=== PATIENT | female | born 1955 | race Caucasian/White ===

== ENCOUNTER → 2016-03-06 | Outpatient (CLI) | payer OTHER ==
[~2016-03-06] VITALS: Ht 160 cm; Wt 75.0 kg
[~2016-03-06] MED LIST: ASPIR-LOW81 MG PO; Ascorbic Acid,Ester- PO; Aspirin Chewable PO; Aspirin E.C. PO; CYANOCOBALAM1000 MCG PO; DESYREL 150 MG150 MG PO; FISH OIL500 MG PO; LIDOCAINE700 MG TD; METAXALONE800 MG PO; NAPROSYN500 MG PO; NAPROXEN500 MG PO; NEXIUM40 MG PO; PERCOCET 5/31 TABLET PO; PREVACID30 MG PO; PROZAC40 MG PO; PROzac PO; PriLOSEC PO; THORAZINE50 MG PO; TRAZODONE HCL150 MG PO; VALIUM5 MG PO; VITAMIN C1000 M1 PO; VITAMIN C1000 MG PO; VITAMIN D1000 UNIT PO; VITAMIN D31000 UNIT PO; Vitamin B-12 PO; Vitamin D PO; XANAX0.25 MG PO; Xanax PO; ZOFRAN4 MG PO
== END | disposition home or self-care (01) ==
LOC: AMB 09:29
DX: K86.89 Other specified diseases of pancreas (principal); K31.7 Polyp of stomach and duodenum; K44.9 Diaphragmatic hernia without obstruction or gangrene; K29.70 Gastritis, unspecified, without bleeding; R10.13 Epigastric pain; M54.6 Pain in thoracic spine; K21.9 Gastro-esophageal reflux disease without esophagitis
CPT/HCPCS: 88305; 88342 TC; J1100; J2250; J2405

== ENCOUNTER 2017-05-25 13:06 | Observation (INO) | payer OTHER ==
[~2017-05-25] VITALS: Ht 160 cm; Wt 82.6 kg
[2017-05-25 13:59] LABS: HEMATOCRIT 38.2 % (36.0-46.0); HEMOGLOBIN 12.6 G/DL (11.9-15.5); MCH 28.2 PG (29.0-34.0); MCV 85.5 FL (83-99); PLATELET COUNT 162 K/uL (156-360); RBC DIS.WIDTH-CV 13.7 % (11.8-14.6); RBC DIS.WIDTH-SD 42.8 % (39-53); RED BLOOD COUNT 4.47 M/uL (3.80-5.20); WHITE BLOOD COUNT 4.3 K/uL (4.1-10.2)
[2017-05-25 14:09] LABS: CHLORIDE 109 mEq/L (99-109); POTASSIUM 3.3 mEq/L (3.7-5.4); SODIUM 140 mEq/L (136-147)
[2017-05-25 14:10] LABS: GLUCOSE 114 mg/dL (70-99)
[2017-05-25 14:14] LABS: CREATININE 1.1 mg/dL (0.6-1.3); GFR ESTIMATE (CALCULATED) 53 mL/min/
[2017-05-25 14:15] LABS: UREA NITROGEN (BUN) 12 mg/dL (9-23)
[2017-05-25 14:34] LABS: TROP-I INTERPRETATION NEGATIVE; TROPONIN-I < 0.01 ng/mL (0.0-0.30)
[2017-05-25 17:15] LABS: HDL CHOLESTEROL 48 MG/DL (Desirable>=50); LDL CHOLESTEROL 88 mg/dL (Desirable<100); NON-HDL CHOLESTEROL 115 mg/dL (Desirable<160); TOTAL CHOLESTEROL 163 mg/dL (Desirable<200); TRIGLYCERIDES 134 MG/DL (Normal: <150)
[2017-05-25] MEDS ORDERED: ONDANSETRON HCL8 MG PO (17:27)
[2017-05-25] MEDS ORDERED: FLUOXETINE HCL40 MG PO (17:27)
[2017-05-25] MEDS ORDERED: BUPROPION XL150 MG PO (17:28)
[2017-05-25] MEDS ORDERED: ESOMEPRAZOLE MA40 MG PO (17:28)
[2017-05-25] MEDS ORDERED: TRAZODONE HCL150 MG PO (17:29)
[2017-05-25] MEDS ORDERED: ALPRAZOLAM0.25 M2 PO (17:30)
[2017-05-25 17:32] VITALS: BP 126/63
[2017-05-25 20:00] VITALS: BP 120/63
[2017-05-26 00:14] VITALS: BP 98/56
[2017-05-26 00:47] LABS: TROP-I INTERPRETATION NEGATIVE; TROPONIN-I < 0.01 ng/mL (0.0-0.30)
[2017-05-26 04:15] VITALS: BP 98/54
[2017-05-26 06:40] LABS: TROP-I INTERPRETATION NEGATIVE; TROPONIN-I < 0.01 ng/mL (0.0-0.30)
[2017-05-26 07:35] VITALS: BP 121/74
[2017-05-26 10:00] LABS: HEMOGLOBIN A1c (GLYCOHEMOGLOB) 5.5 % (Below 5.7)
[2017-05-26] MEDS ORDERED: ASPIR-LOW81 MG PO (12:53)
[2017-05-26 13:28] VITALS: BP 101/64
== END 2017-05-26 13:38 | disposition home or self-care (01) ==
LOC: EME 13:06 → EDOF 15:59 → 5WEST 15:59 → ENRESERV 16:05 → 5WEST 17:26 → ENPENDDIS 05-26 → 5WEST 05-26 13:38
PROVIDERS: Emergency Medicine; Internal Medicine
DX: G45.9 Transient cerebral ischemic attack, unspecified (principal); R07.9 Chest pain, unspecified; E87.6 Hypokalemia; Z86.73 Personal history of transient ischemic attack (TIA), and cerebral infarction without residual deficits; F41.1 Generalized anxiety disorder; Z93.2 Ileostomy status; K51.90 Ulcerative colitis, unspecified, without complications; I05.8 Other rheumatic mitral valve diseases; I27.20 Pulmonary hypertension, unspecified; Z90.49 Acquired absence of other specified parts of digestive tract; Z82.49 Family history of ischemic heart disease and other diseases of the circulatory system; Z88.2 Allergy status to sulfonamides; Z88.8 Allergy status to other drugs, medicaments and biological substances
CPT/HCPCS: 70450; 70551; 71045; 80048; 80061; 82948; 83036; 84484; 85027; 93005; 93306; 93880; 99281; 99285; G0378; J1650; J2405; S0028

== ENCOUNTER 2017-10-06 19:39 | Inpatient (IN) | payer OTHER ==
[~2017-10-06] VITALS: Ht 160 cm; Wt 83.6 kg
[~2017-10-06 19:39] MED LIST changes: +ALPRAZOLAM0.25 M2 PO; +BUPROPION XL150 MG PO; +ESOMEPRAZOLE MA40 MG PO; +FLUOXETINE HCL40 MG PO; +ONDANSETRON HCL8 MG PO
[2017-10-06 20:19] LABS: HEMATOCRIT 41.6 % (36.0-46.0); HEMOGLOBIN 13.6 G/DL (11.9-15.5); MCH 28.2 PG (29.0-34.0); MCHC 32.7 G/DL (30.0-36.0); MCV 86.3 FL (83-99); PLATELET COUNT 192 K/uL (156-360); RBC DIS.WIDTH-CV 13.3 % (11.8-14.6); RBC DIS.WIDTH-SD 41.9 % (39-53); RED BLOOD COUNT 4.82 M/uL (3.80-5.20); WHITE BLOOD COUNT 5.8 K/uL (4.1-10.2)
[2017-10-06 20:33] LABS: ALBUMIN 3.9 g/dL (3.2-4.8)
[2017-10-06 20:34] LABS: CHLORIDE 106 mEq/L (99-109); SODIUM 142 mEq/L (136-147)
[2017-10-06 20:36] LABS: GLUCOSE 108 mg/dL (70-99)
[2017-10-06 20:38] LABS: TOTAL BILIRUBIN 0.4 mg/dL (0.0-1.0)
[2017-10-06 20:40] LABS: ALKALINE PHOSPHATASE 86 IU/L (3-129); CREATININE 1.1 mg/dL (0.6-1.3); GFR ESTIMATE (CALCULATED) 53 mL/min/
[2017-10-06 20:41] LABS: AST (GOT) 17 IU/L (2-34); UREA NITROGEN (BUN) 17 mg/dL (9-23)
[2017-10-06 20:43] LABS: ALT (GPT) 16 IU/L (3-49)
[2017-10-06 21:38] LABS: BACTERIA NONE SEEN /HPF; EPITHELIAL CELLS NONE SEEN /HPF; MUCUS NONE SEEN /LPF; RED BLOOD CELLS NONE SEEN /HPF (0-5); WHITE BLOOD CELLS NONE SEEN /HPF (0-5)
[2017-10-06 23:10] LABS: LIPASE 27 U/L (1.0-51.0)
[2017-10-07 02:56] VITALS: BP 151/70
[2017-10-07 07:08] LABS: HEMATOCRIT 40.6 % (36.0-46.0); HEMOGLOBIN 13.3 G/DL (11.9-15.5); MCH 28.5 PG (29.0-34.0); MCHC 32.8 G/DL (30.0-36.0); MCV 87.1 FL (83-99); PLATELET COUNT 149 K/uL (156-360); RBC DIS.WIDTH-CV 13.4 % (11.8-14.6); RBC DIS.WIDTH-SD 42.7 % (39-53); RED BLOOD COUNT 4.66 M/uL (3.80-5.20); WHITE BLOOD COUNT 5.9 K/uL (4.1-10.2)
[2017-10-07 07:34] LABS: ALBUMIN 3.6 G/DL (3.2-4.8); ALKALINE PHOSPHATASE 108 IU/L (3-129); ALT (GPT) 135 IU/L (3-49); AST (GOT) 275 IU/L (2-34); CHLORIDE 106 MEQ/L (99-109); CREATININE 0.9 MG/DL (0.6-1.3); GFR ESTIMATE (CALCULATED) > 59 mL/min/; GLUCOSE 150 mg/dL (70-99); SODIUM 138 MEQ/L (136-147); TOTAL BILIRUBIN 0.9 MG/DL (0.0-1.0); TOTAL PROTEIN 6.2 G/DL (6.4-8.3); UREA NITROGEN (BUN) 11 mg/dL (9-23)
[2017-10-07 08:02] VITALS: BP 120/56
[2017-10-07] MEDS ORDERED: DESYREL 150 MG150 MG PO (11:42)
[2017-10-07] MEDS ORDERED: NEXIUM40 MG PO (11:42)
[2017-10-07] MEDS ORDERED: PROZAC40 MG PO (11:42)
[2017-10-07] MEDS ORDERED: WELLBUTRIN XL150 MG PO (11:43)
[2017-10-07] MEDS ORDERED: LOW DOSE ASPIRI81 M1 PO (11:43)
[2017-10-07] MEDS ORDERED: XANAX0.25 MG PO (11:43)
[2017-10-07 13:03] VITALS: BP 124/78
[2017-10-07 16:01] VITALS: BP 112/61
[2017-10-07 19:40] VITALS: BP 107/61
[2017-10-07 23:26] VITALS: BP 110/60
[2017-10-08 04:18] VITALS: BP 110/55
[2017-10-08 05:48] LABS: BASOPHIL (%) 0 % (0-1); EOSINOPHIL (%) 0.6 % (0-5); HEMATOCRIT 35.2 % (36.0-46.0); LYMPHOCYTE (%) 29.6 % (15-42); LYMPHOCYTE COUNT 0.9 K/uL (1.0-2.8); MCH 27.8 PG (29.0-34.0); MCHC 31.5 G/DL (30.0-36.0); MCV 88.2 FL (83-99); MONOCYTE (%) 9.6 % (3-12); MONOCYTE COUNT 0.3 K/uL (0-0.8); NEUTROPHIL (%) 60.2 % (45-76); NEUTROPHIL COUNT 1.9 K/uL (1.8-6.4); PLATELET COUNT 122 K/uL (156-360); RBC DIS.WIDTH-CV 13.2 % (11.8-14.6); RBC DIS.WIDTH-SD 43.1 % (39-53); RED BLOOD COUNT 3.99 M/uL (3.80-5.20); WHITE BLOOD COUNT 3.1 K/uL (4.1-10.2)
[2017-10-08 05:51] LABS: HEMOGLOBIN 11.1 G/DL (11.9-15.5)
[2017-10-08 06:19] LABS: ALBUMIN 2.9 G/DL (3.2-4.8); ALKALINE PHOSPHATASE 79 IU/L (3-129); ALT (GPT) 116 IU/L (3-49); AST (GOT) 107 IU/L (2-34); CHLORIDE 110 MEQ/L (99-109); CREATININE 1.1 MG/DL (0.6-1.3); GFR ESTIMATE (CALCULATED) 53 mL/min/; GLUCOSE 93 mg/dL (70-99); POTASSIUM 3.9 MEQ/L (3.7-5.4); SODIUM 143 MEQ/L (136-147); TOTAL BILIRUBIN 0.5 MG/DL (0.0-1.0); TOTAL PROTEIN 5.3 G/DL (6.4-8.3); UREA NITROGEN (BUN) 8 mg/dL (9-23)
[2017-10-08 07:52] VITALS: BP 103/55
[2017-10-08 10:42] LABS: HEPATITIS B SURFACE ANTIGEN Nonreactive
[2017-10-08 10:43] LABS: HEPATITIS C ANTIBODY Nonreactive
[2017-10-08 10:44] LABS: ANTI-HEPATITIS A VIRUS (IGM) Nonreactive
[2017-10-08 10:45] LABS: ANTI-HEPATITIS B CORE (IGM) Nonreactive
[2017-10-08 11:44] VITALS: BP 98/53
== END 2017-10-08 14:39 | disposition home or self-care (01) | DRG 389 ==
LOC: EME 19:39 → EDOF 10-07 01:49 → ENRESERV 10-07 01:50 → 4SOUTH 10-07 02:48
PROVIDERS: Hospitalist; Internal Medicine; Internal Medicine Gastroenterology
DX: K56.7 Ileus, unspecified (principal); F41.1 Generalized anxiety disorder; K51.90 Ulcerative colitis, unspecified, without complications; Z86.73 Personal history of transient ischemic attack (TIA), and cerebral infarction without residual deficits; Z90.49 Acquired absence of other specified parts of digestive tract; Z93.2 Ileostomy status; K21.9 Gastro-esophageal reflux disease without esophagitis
CPT/HCPCS: 74018; 74177; 80053; 80074; 81003; 81015; 83690; 85025; 85027; 99281; 99285; C9113; J1200; J1644; J2270; J2405; J2765; J3010; J7030; S0028